=== PATIENT | male | born 1970 | race Caucasian/White ===

== ENCOUNTER 2017-05-10 11:29 | Emergency (ER) | payer OTHER ==
[2017-05-10] MEDS ORDERED: Acetaminophen/HYDROcodone 325-5 MG Tab PO ONE (14:19)
--- NOTE | 2017-05-10 14:25 | EDM.PDOC ---
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 He presents with left elbow pain, and the inability to flex and extend his left elbow. He is otherwise uninjured. No prior left elbow injury. Left Elbow Pain Score (Numeric/FACES): 8 - Related Data Allergies Allergy/AdvReac Type Severity Reaction Status Date / Time No Known Allergies Allergy Verified 05/10/17 11:36 Home Meds: Home Meds Baby Aspirin 05/10/17 [History] Dilantin. 05/10/17 [History] Keppra. 1,500 mg PO BID 05/10/17 [History] Lisinopril. 05/10/17 [History] Past Medical History Cardiovascular History: Reports: High Cholesterol, Hypertension Neurological History: Reports: Seizure - Past Surgical History Respiratory Surgical History: Reports: Other (See Below) (Bilateral tube thoracostomies) Musculoskeletal Surgical History: Reports: Shoulder Surgery (Left rotator cuff repair), Other (See Below) (Right fifth finger pinning) Social & Family History - Tobacco Use Smoking Status *Q: Current Every Day Smoker Years of Tobacco use: 30 Packs/Tins Daily: 1 - Alcohol Use Alcohol Use History: Yes Alcohol Use Frequency: Socially - Recreational Drug Use Recreational Drug Use: No - Living Situation & Occupation Living situation: Reports: Single, Alone 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 ED EXAM, GENERAL - Physical Exam Exam: See Below Exam Limited By: No Limitations General Appearance: Alert, WD/WN, No Apparent Distress Extremities: Other (Mild swelling to the posterior aspect of the left elbow, but no ecchymosis, abrasion, or erythema. There is tenderness to palpation of the posterior elbow, and pain is induced in the elbow with any attempts at ROM. Neurovascular status of the left upper extremity is intact.) ED TRAUMA EXTREMITY PROCEDURES - Splinting Left Upper Extremity Splint Site: Left elbow Pre-Procedure NV Status: Normal Post-Procedure NV Status: Normal Splint Material: Fiberglass Splint Design: Gutter Applied & Form Fitted By: Provider Provider Post-Splint Application NV Check: NV Status Normal, Good Position Complications: Yes Course - Vital Signs Last Recorded V/S: Last Vital Signs Temp 36.3 C 05/10/17 11:38 Pulse 80 05/10/17 11:38 Resp 16 05/10/17 11:38 BP 127/85 05/10/17 11:38 Pulse Ox 100 05/10/17 11:38 - Orders/Labs/Meds Meds: Medications Discontinued Medications Generic Name Dose Route Start Last Admin Trade Name Freq PRN Reason Stop Dose Admin Hydrocodone Bitart/Acetaminophen 2 tab 05/10/17 14:19 05/10/17 14:24 Sharon 325-5 Mg PO 05/10/17 14:20 Not Given ONETIME ONE - Re-Assessments/Exams Free Text/Narrative Re-Assessment/Exam: 05/10/17 14:21 4-view radiographs of the left elbow appear to demonstrate a displaced fracture of the olecranon process of the ulna. The elbow is not dislocated. The radius appears to be intact. A metallic foreign body is noted within the soft tissue in the vicinity. Formal read per the radiologist pending. 05/10/17 14:[address] Montaño at 14:24. He recommends that we splint the arm , have the patient ice and elevate the arm over the weekend, then have him follow-up in the clinic this coming 05/15/2017, with an expectation that he will go to the OR on 05/16/2017. The patient's left arm was placed into a gutter splint. He was offered pain medication, but declined. Departure - Departure Time of Disposition: 14:49 Disposition: Home, Self-Care 01 Condition: Fair Clinical Impression: Fracture of olecranon process, left, closed, Fall from slipping on ice - Discharge Information Instructions: Fall Prevention in the Home Referrals: Tosin Fishman MD [Primary Care Provider] - Sd Montaño MD [Physician] - Forms: ED Department Discharge Additional Instructions: You were seen in the emergency room after slipping on ice and falling on your left elbow at work today. Workup in the ER included x-rays of your left elbow, which showed a left elbow fracture. Your left arm has been placed into a splint. The splint cannot get wet. We recommend that you ice and elevate your left elbow as much as possible over the weekend, to help minimize swelling. Take [id number] ibuprofen, 2-3 tablets (400-600 mg) every 8 hours, with food, as needed for pain. Follow-up with the Orthopedic Surgeon Dr. Montaño this coming Monday, 2017. You should expect to go to the OR with Dr. Montaño on 05/16/2017. If any other problems, please do not hesitate to return to the ER.
--- NOTE | 2017-05-10 14:31 | CR ---
Left elbow: Four views of the left elbow were obtained. Comparison: No prior elbow study. Displaced olecranon process fracture is seen. Soft tissue swelling is noted. Small metallic foreign body projected within the proximal to mid forearm. Broken wire is identified within the soft tissues located slightly distal to the elbow. Joint effusion is seen. No additional fracture is appreciated. Impression: 1. Displaced olecranon process fracture with joint effusion and soft tissue swelling. 2. Several radiopaque foreign objects which are likely old. Diagnostic code #3
== END 2017-05-10 15:10 | disposition home or self-care (01) ==
LOC: JD.ED 11:29
DX: S52.022A Displaced fracture of olecranon process without intraarticular extension of left ulna, initial encounter for closed fracture (principal); I10 Essential (primary) hypertension; F17.210 Nicotine dependence, cigarettes, uncomplicated; Z79.899 Other long term (current) drug therapy; W00.0XXA Fall on same level due to ice and snow, initial encounter
CPT/HCPCS: 29105; 29125; 73080-26-LT; 73080-LT; 99283-25; 99284-25

== ENCOUNTER 2017-05-16 06:58 | Day surgery (SDC) | payer OTHER ==
--- NOTE | 2017-05-16 06:44 | PCM.PREANE ---
Preanesthetic Assessment - Anesthesia/Transfusion/Family Hx Anesthesia History: Prior Anesthesia Without Reaction Family History of Anesthesia Reaction: No Transfusion History: No Prior Transfusion(s) Intubation History: Unknown - Review of Systems General: No Symptoms Pulmonary: No Symptoms (Current every day smoker: 1-2 packs/day times 25 years.) Cardiovascular: No Symptoms (history of HTN) Gastrointestinal: No Symptoms Neurological: No Symptoms, Seizure (History of epilepsy/last seizure 1.5 years ago.) Other: Reports: None - Physical Assessment NPO Status Date: 05/15/17 NPO Status Time: 18:00 Pulse: 90 O2 Sat by Pulse Oximetry: 97 Respiratory Rate: 16 Blood Pressure: 142/95 Temperature: 37.3 C Height: 1.78 m Weight: 73 kg ASA Class: 2 Mental Status: Alert & Oriented x3 Airway Class: Mallampati = 2 Dentition: Reports: Normal Dentition, Caries Thyro-Mental Finger Breadths: 3 Mouth Opening Finger Breadths: 3 ROM/Head Extension: Full Lungs: Clear to Auscultation, Normal Respiratory Effort Cardiovascular: Regular Rate, Regular Rhythm, No Murmurs - Lab Values: Above labs reviewed and noted and within acceptable ranges to proceed with scheduled procedure. MRSA -. - Imaging/EKG Impressions: CXR: scoliosis/negative chest. EKG: SR rate= 89 - Allergies Allergies/Adverse Reactions: Allergies Allergy/AdvReac Type Severity Reaction Status Date / Time No Known Allergies Allergy Verified 05/16/17 07:38 - Anesthesia Plan Pre-Op Medication Ordered: None - Acknowledgements Anesthesia Type Planned: General Anesthesia Pt an Appropriate Candidate for the Planned Anesthesia: Yes Alternatives and Risks of Anesthesia Discussed w Pt/Guardian: Yes Pt/Guardian Understands and Agrees with Anesthesia Plan: Yes PreAnesthesia Questionnaire HEENT History: Reports: None Cardiovascular History: Reports: High Cholesterol, Hypertension Respiratory History: Reports: None Gastrointestinal History: Reports: None Genitourinary History: Reports: None QUALITY RN History: Reports: None Other Musculoskeletal History: olecranon fracture Neurological History: Reports: Seizure Psychiatric History: Reports: None Endocrine/Metabolic History: Reports: None Hematologic History: Reports: None Immunologic History: Reports: None Oncologic (Cancer) History: Reports: None Dermatologic History: Reports: None - Past Surgical History Head Surgeries/Procedures: Reports: None Cardiovascular Surgical History: Reports: None Respiratory Surgical History: Reports: None GI Surgical History: Reports: None Female Surgical History: Reports: None Male Surgical History: Reports: None Endocrine Surgical History: Reports: None Musculoskeletal Surgical History: Reports: Shoulder Surgery, Other (See Below) Oncologic Surgical History: Reports: None Dermatological Surgical History: Reports: None - SUBSTANCE USE Smoking Status *Q: Current Every Day Smoker Recreational Drug Use History: No - HOME MEDS Home Medications: Home Meds Aspirin [Halfprin] 81 mg PO DAILY 05/15/17 [History] Lisinopril 40 mg PO DAILY 05/15/17 [History] Phenytoin Sodium Extended [Dilantin] 200 mg PO BID 05/15/17 [History] Triamcinolone Acetonide [Triamcinolone Acetonide 0.1% Crm] 1 applic TOP ASDIRECTED 05/15/17 [History] atorvaSTATin [Lipitor] 20 mg PO DAILY 05/15/17 [History] levETIRAcetam [Keppra] 1,500 mg PO BID 05/15/17 [History] - CURRENT (IN HOUSE) MEDS Current Meds: Current Medications Lactated Ringer's (Ringers, Lactated) 1,000 mls @ 125 mls/hr IV ASDIRECTED JEAN CARLOS Stop: 05/16/17 23:00 Lidocaine/Sodium Bicarbonate (Buffered Lidocaine 1% In Ns 8.4%) 0.25 ml IDERM ONETIME PRN PRN Reason: Prior to IV Start Stop: 05/16/17 18:00 Sodium Chloride (Saline Flush) 10 ml FLUSH ASDIRECTED PRN PRN Reason: Keep Vein Open Stop: 05/16/17 18:00
--- NOTE | 2017-05-16 06:48 | HP ---
DATE OF ADMISSION: 05/16/2017 HISTORY OF PRESENT ILLNESS: This is the first orthopedic outpatient admission for surgery for this 47-year- old male, who is being admitted for the surgical repair of a displaced fracture of the left olecranon. 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 He was initially evaluated in the emergency room, splinted and now seen in the Orthopedic Clinic. The fracture was evaluated, found to have significant displacement. The patient is now being scheduled for surgical open reduction and internal fixation of the fracture. Procedure has been outlined to him along the risks and complications involved with that and he has consented to the surgery. ALLERGIES: No known drug allergies. PAST MEDICAL HISTORY: The patient has a history of seizure disorder, high blood pressure, and increased cholesterol. CURRENT MEDICATIONS: Include atorvastatin along with Levetiracetam ER 500 mg, lisinopril, Dilantin, and also he is on an aspirin therapy. PAST SURGICAL HISTORY: Positive. He has had previous left shoulder surgery, rotator cuff, had general anesthesia 16 years ago, had no anesthetic problems. He has a negative bleeding history, negative blood clot history. SOCIAL HISTORY: The patient is a smoker, 1 pack per day. He uses alcohol on an occasional basis. PHYSICAL EXAMINATION: GENERAL: Today reveals a well-developed, well-nourished 47-year-old male, in moderate distress. HEAD, EYES, EARS, NOSE, AND THROAT: Normocephalic. NECK: Supple. CHEST: Clear. COR: Regular rate. ABDOMEN: Soft. GENITOURINARY: Intact. EXTREMITIES: Examination of the left elbow reveals positive hematoma, ecchymosis formation all around the left elbow area with positive pain on direct pressure, swelling noted. The patient has positive active flexion and extension of the wrist with minimal pain discomfort. Sensory and vascular structures are intact. RADIOLOGY: The x-rays reviewed, shows a displaced olecranon fracture of left elbow. PLAN: The patient to undergo surgical open reduction and internal fixation of the left elbow fracture. Procedure was outlined to him, all risks and complications involved with that and he has consented to surgery. DEVANTE /[id number]
[~2017-05-16 06:58] MED LIST: Iodine/Sodium Iodide 2% Tincture 30 ML Bottle ONE; Lidocaine 1% with EPINEPHrine 1:100,000 20 ML MDV ONE
[2017-05-16] MEDS ORDERED: Sodium Chloride 0.9% 10 ML Syringe FLUSH PRN (07:00)
[2017-05-16] MEDS ORDERED: Lidocaine 1%/Sod Bicarbonate in NS 8.4% 1 ML Syringe IDERM PRN (07:00)
[2017-05-16] MEDS ORDERED: Lactated Ringers 1,000 ML IV SCH (07:00)
[2017-05-16] MEDS ORDERED: Lactated Ringers 1,000 ML ONE (07:16)
[2017-05-16] MEDS ORDERED: ceFAZolin 1 GM Vial ONE (07:16)
[2017-05-16] MEDS ORDERED: Rocuronium 50 MG/5 ML Vial ONE (07:16)
[2017-05-16] MEDS ORDERED: Lidocaine 1% 4 ML ONE (07:16)
[2017-05-16] MEDS ORDERED: Dexamethasone 4 MG/ML SDV ONE (07:16)
[2017-05-16] MEDS ORDERED: Ondansetron 4 MG/2 ML SDV ONE (07:16)
[2017-05-16] MEDS ORDERED: Ketorolac 30 MG/ML SDV ONE (07:16)
[2017-05-16] MEDS ORDERED: Midazolam 1 MG/ML 2 ML SDV ONE (07:17)
[2017-05-16] MEDS ORDERED: Propofol 200 MG/20 ML SDV ONE (07:17)
[2017-05-16] MEDS ORDERED: fentaNYL 250 MCG/5 ML SDV ONE (07:18)
[2017-05-16] MEDS ORDERED: HYDROmorphone 1 MG/ML Syringe ONE ×3 (07:18→09:55)
[2017-05-16] MEDS ORDERED: Acetaminophen/oxyCODONE 325-5 MG Tab PO PRN (07:57)
[2017-05-16] MEDS ORDERED: Ondansetron 4 MG/2 ML SDV IVPUSH PRN ×2 (07:57→08:16)
[2017-05-16] MEDS ORDERED: Ketorolac 30 MG/ML SDV IVPUSH PRN (07:57)
[2017-05-16] MEDS ORDERED: Morphine 15 MG Tab.ER PO SCH (08:00)
[2017-05-16] MEDS ORDERED: diphenhydrAMINE 50 MG/ML SDV IVPUSH PRN (08:16)
[2017-05-16] MEDS ORDERED: ePHEDrine 50 MG/ML SDV IVPUSH PRN (08:16)
[2017-05-16] MEDS ORDERED: Albuterol 0.083% 2.5 MG/3 ML Neb Soln NEB ONE (08:16)
[2017-05-16] MEDS ORDERED: HYDROmorphone 1 MG/ML Syringe IVPUSH ONE (08:17)
[2017-05-16] MEDS ORDERED: Phenylephrine 1 MG in Sodium Chloride 0.9% 10 ML IV SCH (08:30)
[2017-05-16] MEDS ORDERED: fentaNYL 100 MCG/2 ML SDV ONE (09:10)
--- NOTE | 2017-05-16 10:23 | CR ---
Left elbow: Seven fluoroscopic spot views were obtained of the left elbow utilizing C-arm device in the operating room. Study shows reduction and fixation of previous olecranon process fracture. Final film shows fixation pins and wire in place. Fluoroscopy time given as 37.7 seconds. Impression: 1. Operative study as noted above. Diagnostic code #2
[2017-05-16] MEDS: fentaNYL 100 MCG/2 ML SDV IVPUSH PRN ×2 (10:26→10:44)
--- NOTE | 2017-05-16 10:26 | PCM.POSTAN ---
POST ANESTHESIA ASSESSMENT - MENTAL STATUS Mental Status: Alert - VITAL SIGNS Pulse Rate: 95 SaO2: 94 Resp Rate: 17 Blood Pressure: 130/86 Temperature: 37.3 C - RESPIRATORY Respiratory Status: Respiratory Rate WNL, Airway Patent, O2 Saturation Stable, Supplemental Oxygen - CARDIOVASCULAR CV Status: Pulse Rate WNL, Blood Pressure Stable - GASTROINTESTINAL GI Status: No Symptoms - POST OP HYDRATION Hydration Status: Adequate & Stable
[2017-05-16] MEDS ORDERED: Cyclobenzaprine 10 MG Tab PO PRN (10:30)
--- NOTE | 2017-05-16 12:41 | PCM48HPAN ---
Post Anesthesia Note - EVALUATION WITHIN 48HRS OF ANESTHETIC Vital Signs in Normal Range: Yes Patient Participated in Evaluation: Yes Respiratory Function Stable: Yes Airway Patent: Yes Cardiovascular Function Stable: Yes Hydration Status Stable: Yes Pain Control Satisfactory: Yes Nausea and Vomiting Control Satisfactory: Yes Mental Status Recovered: Yes
--- NOTE | 2017-05-16 13:15 | OR ---
DATE OF OPERATION: 05/16/2017 SURGEON: Sd Montaño MD PREOPERATIVE DIAGNOSIS: Displaced and unstable olecranon fracture, left elbow. POSTOPERATIVE DIAGNOSIS: Displaced and unstable olecranon fracture, left elbow. ANESTHESIA: General. OPERATION PERFORMED: Open reduction and internal fixation of left elbow olecranon fracture with pins, wire, tension band wiring. DESCRIPTION OF PROCEDURE: The patient was taken to the operative room in a supine position and was placed under a general anesthesia. The left arm was then prepped and draped by standard fashion for approach to the olecranon area of the left elbow. After prepping and draping, a midline incision was used paralleling the crest of the ulna, extending over the distal elbow proximally to approximately a couple of centimeters proximal to the fragment of the olecranon. Penetration was made through the skin and the subcutaneous tissues. These were sharply dissected down to the ridge of the ulna and extended over the fracture site and also the proximal portion of the fractured olecranon fragment. This soft tissues were then dissected free to open up and to expose the area of fracture. Fracture hematoma was then removed from the wound area and the fracture site until it was easily identifiable to see the fracture lines and then the joint was inspected with flexion and extension with the fracture held apart. Ccgmbzd-rx-qv changes were noted in the joint area, except some scuffing of the articular cartilage. Operation then proceeded with irrigation of the wound again. The fracture was then reduced and held in place with a tenaculum. It was felt that with the bone that a screw fixation would be first attempted to fix with a 6.5 cannulated screw. This was placed, but once it was put into place, the fracture remained somewhat movable, but not lock down into solid position. It was opted to change the screw into a tension band wiring. Two Steinmann pins, 2.5 mm, were inserted through the olecranon fragment proximally and into the distal ulna. Once the pins were in place, a drill hole was then placed approximately 2 to 3 cm from the fracture line distally for a wire to be passed through. A 1.25 wire was used. This was slid through the cortical hole and then was looped up and around the two paralleling Steinmann pins in a [id number] fashion and then tensioned and tightened to reduce the fragment and allow it to slide on the Steinmann pins to reduce the fracture itself. This stabilized it very nicely. There was no movement. Once the fracture was pinned in place and tightened with the tension band wiring, the Steinmann pins were then bent to cover the wire itself and then impacted into the distal portion of the triceps through a small slit. Once they were in place, the operation proceeded with final evaluation of the fracture site with the fluoroscopy. Fluoroscopy was used all through the procedure to follow the pin fixations. The fracture line itself was identifiable. The reduction at the joint level articular surface was very acceptable. The operation then proceeded for final irrigation. Hardcopy x-rays were taken, AP and lateral, and then the operation proceeded with closure of the deep tissues with #1 Vicryl, subcutaneous tissue with 2-0 Vicryl, and skin with skin jessica. Standard dressings were applied and a long-arm cast, which was windowed over the wound. The patient tolerated this whole procedure well and left the operating room in a stable condition to his room for recovery. ESTIMATED BLOOD LOSS: MMODAL /[id number]
== END 2017-05-16 13:10 | disposition home or self-care (01) ==
LOC: JD.SDS 06:58
PROVIDERS: ATTEND Specialist
DX: S52.022A Displaced fracture of olecranon process without intraarticular extension of left ulna, initial encounter for closed fracture (principal); W00.0XXA Fall on same level due to ice and snow, initial encounter; I10 Essential (primary) hypertension; E78.00 Pure hypercholesterolemia, unspecified; Z79.82 Long term (current) use of aspirin; Z79.899 Other long term (current) drug therapy; F17.210 Nicotine dependence, cigarettes, uncomplicated
CPT/HCPCS: 24685; 76000; A9270; J0690; J1100; J1170; J1885; J2250; J2405; J3010; J7120; C1713; J2704

== ENCOUNTER 2017-10-24 07:31 | Day surgery (SDC) | payer OTHER ==
--- NOTE | 2017-10-16 22:02 | HP ---
DATE OF ADMISSION: 10/24/2017 ORTHOPEDIC OUTPATIENT ADMITTING HISTORY AND PHYSICAL FOR SURGERY HISTORY: This is the second orthopedic outpatient admission for surgery for this 47-year- old male who has been brought in for a surgical removal of orthopedic hardware of the left elbow, pins and wire fixation for a fracture. The patient has had positive pain with the mechanical device that is present, and the x-ray has shown good healing of the bone. Hardware will be removed in surgery. Procedure has been outlined to him. He understands the procedure and also the postoperative restriction phase, about 6 weeks, and has consented to surgery. ALLERGIES: No known drug allergy. PAST MEDICAL HISTORY: He has been a patient with increased blood pressure, cholesterol, has occasional seizures, currently on lisinopril. CURRENT MEDICATIONS: Atorvastatin along with Dilantin and aspirin. PAST SURGICAL HISTORY: Positive. The patient had previous left elbow surgery, 05/16/2017. He had no anesthesia problems. The patient has a negative bleeding history, negative blood clot history. SOCIAL HISTORY: He is a smoker, 1 pack per day. Alcohol is on occasional use. PHYSICAL EXAMINATION: GENERAL: Reveals a well-developed, well-nourished 47-year-old male in moderate distress. HEAD, EYES, EARS, NOSE, AND THROAT: Normocephalic. NECK: Supple. CHEST: Clear. COR: Regular rate. ABDOMEN: Soft. : Intact. MUSCULOSKELETAL: Examination of the left elbow reveals a positive painful hardware on direct pressure palpation. Previous surgical wounds, all healed. No signs of infection or inflammation. RADIOLOGY: X-rays show a pin-wire fixation of olecranon fracture. No fracture line present. Good callus formation was noted. OVERALL IMPRESSION: Painful hardware, left elbow. PLAN: Plan is for the patient to undergo surgical removal of painful hardware. MMODAL /[id number] MICHAEL
[~2017-10-24 07:31] MED LIST changes: -Iodine/Sodium Iodide 2% Tincture 30 ML Bottle ONE; +Lactated Ringers 1,000 ML IV SCH; -Lidocaine 1% with EPINEPHrine 1:100,000 20 ML MDV ONE; +Lidocaine 1%/Sod Bicarbonate in NS 8.4% 1 ML Syringe IDERM PRN; +Sodium Chloride 0.9% 10 ML Syringe FLUSH PRN
--- NOTE | 2017-10-24 08:21 | PCM.PREANE ---
Preanesthetic Assessment - Procedure Proposed Procedure: REMOVAL OF HARDWARE TO LEFT ELBOW - Anesthesia/Transfusion/Family Hx Anesthesia History: Prior Anesthesia Without Reaction Family History of Anesthesia Reaction: No Transfusion History: No Prior Transfusion(s) Intubation History: Unknown - Review of Systems General: No Symptoms Pulmonary: No Symptoms Cardiovascular: Other (HTN, HLD) Gastrointestinal: No Symptoms (denies GERD ) Neurological: Seizure (last seizure about a year ago, patient stated they are well regulated now ) Other: Reports: None - Physical Assessment NPO Status Date: 10/24/17 NPO Status Time: 06:00 O2 Sat by Pulse Oximetry: 100 Respiratory Rate: 16 Vital Signs: Last Vital Signs Temp 36.3 C 10/24/17 07:40 Pulse 71 10/24/17 07:40 Resp 16 10/24/17 07:40 BP 125/75 10/24/17 07:40 Pulse Ox 100 10/24/17 07:40 Height: 1.73 m Weight: 73.1 kg ASA Class: 2 Airway Class: Mallampati = 3 Dentition: Reports: Normal Dentition Thyro-Mental Finger Breadths: 3 Mouth Opening Finger Breadths: 3 ROM/Head Extension: Full Lungs: Clear to Auscultation, Normal Respiratory Effort Cardiovascular: Regular Rate, Regular Rhythm - Allergies Allergies/Adverse Reactions: Allergies Allergy/AdvReac Type Severity Reaction Status Date / Time No Known Allergies Allergy Verified 05/16/17 07:38 - Blood Blood Available: No Product(s) Available: None - Anesthesia Plan Pre-Op Medication Ordered: None - Acknowledgements Anesthesia Type Planned: General Anesthesia (LMA recommended ) Pt an Appropriate Candidate for the Planned Anesthesia: Yes Alternatives and Risks of Anesthesia Discussed w Pt/Guardian: Yes Pt/Guardian Understands and Agrees with Anesthesia Plan: Yes PreAnesthesia Questionnaire HEENT History: Reports: None Cardiovascular History: Reports: High Cholesterol, Hypertension Respiratory History: Reports: None Gastrointestinal History: Reports: None Genitourinary History: Reports: None BLOCK CUBER History: Reports: None Other Musculoskeletal History: olecranon fracture Neurological History: Reports: Seizure Psychiatric History: Reports: None Endocrine/Metabolic History: Reports: None Hematologic History: Reports: None Immunologic History: Reports: None Oncologic (Cancer) History: Reports: None Dermatologic History: Reports: None - Past Surgical History Head Surgeries/Procedures: Reports: None HEENT Surgical History: Reports: None Cardiovascular Surgical History: Reports: None Respiratory Surgical History: GI Surgical History: Reports: None Female Surgical History: Reports: None Male Surgical History: Reports: None Endocrine Surgical History: Reports: None Neurological Surgical History: Reports: None Musculoskeletal Surgical History: Reports: Shoulder Surgery, Other (See Below) Other Musculoskeletal Surgeries/Procedures:: left elbow ORIF with hardware placed Oncologic Surgical History: Reports: None Dermatological Surgical History: Reports: None - SUBSTANCE USE Smoking Status *Q: Current Every Day Smoker (1ppd for 30 years) Second Hand Smoke Exposure: No Recreational Drug Use History: No - HOME MEDS Home Medications: Home Meds Aspirin [Halfprin] 81 mg PO DAILY 05/15/17 [History] Lisinopril 40 mg PO DAILY 05/15/17 [History] Phenytoin Sodium Extended [Dilantin] 200 mg PO BID 05/15/17 [History] atorvaSTATin [Lipitor] 20 mg PO DAILY 05/15/17 [History] levETIRAcetam [Keppra] 1,500 mg PO BID 05/15/17 [History] Phenytoin 50 mg PO BEDTIME 10/23/17 [History] - CURRENT (IN HOUSE) MEDS Current Meds: Current Medications Lactated Ringer's (Ringers, Lactated) 1,000 mls @ 125 mls/hr IV ASDIRECTED JEAN CARLOS Lidocaine/Sodium Bicarbonate (Buffered Lidocaine 1% In Ns 8.4%) 0.25 ml IDERM ONETIME PRN PRN Reason: Prior to IV Start Stop: 10/24/17 18:00 Sodium Chloride (Saline Flush) 10 ml FLUSH ASDIRECTED PRN PRN Reason: Keep Vein Open Stop: 10/24/17 18:00
[2017-10-24] MEDS ORDERED: ceFAZolin 1 GM Vial ONE (09:00)
[2017-10-24] MEDS ORDERED: Ketorolac 30 MG/ML SDV ONE (09:00)
[2017-10-24] MEDS ORDERED: Dexamethasone 4 MG/ML SDV ONE ×2 (09:00→10:25)
[2017-10-24] MEDS ORDERED: Lactated Ringers 1,000 ML ONE (09:00)
[2017-10-24] MEDS ORDERED: Ondansetron 4 MG/2 ML SDV ONE (09:00)
[2017-10-24] MEDS ORDERED: fentaNYL 100 MCG/2 ML SDV ONE (09:01)
[2017-10-24] MEDS ORDERED: Propofol 200 MG/20 ML SDV ONE (09:01)
[2017-10-24] MEDS ORDERED: Lidocaine 1% 4 ML ONE (09:01)
[2017-10-24] MEDS ORDERED: Midazolam 1 MG/ML 2 ML SDV ONE (09:01)
[2017-10-24] MEDS ORDERED: Bupivacaine 0.5%/EPINEPHrine 1:200,000 50 ML MDV ONE (09:32)
[2017-10-24] MEDS ORDERED: Iodine/Sodium Iodide 2% Tincture 30 ML Bottle ONE (09:32)
[2017-10-24] MEDS ORDERED: Ketorolac 30 MG/ML SDV IVPUSH PRN (09:57)
[2017-10-24] MEDS ORDERED: traMADol 50 MG Tab PO PRN (09:57)
[2017-10-24] MEDS ORDERED: Ondansetron 4 MG/2 ML SDV IVPUSH PRN (09:57)
[2017-10-24] MEDS ORDERED: HYDROmorphone 0.5 MG/0.5 ML Syringe ONE (10:22)
[2017-10-24] MEDS ORDERED: diphenhydrAMINE 50 MG/ML SDV IVPUSH PRN (11:07)
[2017-10-24] MEDS ORDERED: HYDROmorphone 0.5 MG/0.5 ML Syringe IVPUSH PRN (11:07)
[2017-10-24] MEDS ORDERED: fentaNYL 100 MCG/2 ML SDV IVPUSH PRN (11:07)
[2017-10-24] MEDS ORDERED: Haloperidol Lactate 5 MG/ML SDV IVPUSH ONE (11:07)
--- NOTE | 2017-10-24 11:09 | PCM.POSTAN ---
POST ANESTHESIA ASSESSMENT - MENTAL STATUS Mental Status: Somnolent - VITAL SIGNS Pulse Rate: 54 SaO2: 100 Resp Rate: 11 Blood Pressure: 115/79 Temperature: 36.8 C - RESPIRATORY Respiratory Status: Respiratory Rate WNL, Airway Patent, O2 Saturation Stable, Supplemental Oxygen - CARDIOVASCULAR CV Status: Pulse Rate WNL, Blood Pressure Stable - GASTROINTESTINAL GI Status: No Symptoms - PAIN Pain Score: 0 - POST OP HYDRATION Hydration Status: Adequate & Stable
--- NOTE | 2017-10-24 15:33 | OR ---
DATE OF OPERATION: 10/24/2017 SURGEON: Sd Montaño MD PREOPERATIVE DIAGNOSIS: Open reduction and internal fixation of olecranon fracture, left elbow, with hardware. POSTOPERATIVE DIAGNOSIS: Open reduction and internal fixation of olecranon fracture, left elbow, with hardware. ANESTHESIA: General. OPERATION PERFORMED: Removal of hardware, left elbow, pins and wire. DESCRIPTION OF PROCEDURE: The patient was taken to the operative room in a supine position, where he was placed under general anesthesia. The left arm was then prepped and draped by standard technique. After prepping and draping, the operation proceeded with an incision being placed through the old previous surgical incision. Penetration was made through the skin and subcutaneous tissues down to the olecranon area. The wire fixation was immediately identified as was the Steinmann pins that were used. These were freed up of scar tissue and removed. Once the Steinmann pins were removed, then the [id number] wire fixation was removed by cutting the wire. Once that was completed, the area was thoroughly irrigated. The subcutaneous tissues were closed with 3-0 Vicryl and skin with skin jessica. The patient was placed in standard dressings. He tolerated this whole procedure well and left the operating room in a stable condition to his room for recovery. ESTIMATED BLOOD LOSS: MMODAL /[id number]
== END 2017-10-24 12:10 | disposition home or self-care (01) ==
LOC: JD.SDS 07:31
PROVIDERS: ATTEND Specialist
DX: T84.84XA Pain due to internal orthopedic prosthetic devices, implants and grafts, initial encounter (principal); I10 Essential (primary) hypertension; E78.00 Pure hypercholesterolemia, unspecified; R56.9 Unspecified convulsions; F17.210 Nicotine dependence, cigarettes, uncomplicated; Z79.82 Long term (current) use of aspirin; Z79.899 Other long term (current) drug therapy; Z98.890 Other specified postprocedural states
CPT/HCPCS: 20680; A9270; J0690; J1100; J1170; J1885; J2250; J2405; J2704; J3010; J3490; J7120; J2001

== ENCOUNTER 2019-10-05 16:00 | Emergency (ER) | payer OTHER ==
[2019-10-05] MEDS ORDERED: Aspirin 81 MG Tab.Chew PO ONE (16:19)
[2019-10-05] MEDS ORDERED: Sodium Chloride 0.9% 10 ML Syringe FLUSH PRN (16:35)
[2019-10-05] MEDS ORDERED: Acetaminophen 325 MG Tab PO ONE (16:35)
[2019-10-05] MEDS ORDERED: Ketorolac 30 MG/ML SDV IVPUSH SCH (16:45)
--- NOTE | 2019-10-05 16:55 | EDM.PDOC ---
ED HPI GENERAL MEDICAL PROBLEM - General Chief Complaint: Chest Pain Stated Complaint: CHEST PAIN Time Seen by Provider: 10/05/19 16:25 Source of Information: Reports: Patient, RN Notes Reviewed - History of Present Illness INITIAL COMMENTS - FREE TEXT/NARRATIVE: 49 yr old male male comes in with upper abd, low chest and back pain that all started this past morning many hrs ago, now worse. It does hurt to take a deep breath. He has not been coughing more than usual. He felt fine yesterday. He does smoke. He denies hx of CAD, diabetes, GI problems. No nausea or vomiting. Pain quite severe at time of initial exam. Chest Pain Score (Numeric/FACES): 9 - Related Data Allergies Allergy/AdvReac Type Severity Reaction Status Date / Time No Known Allergies Allergy Verified 10/05/19 16:12 Home Meds: Home Meds Aspirin [Halfprin] 81 mg PO DAILY 05/15/17 [History] Lisinopril 40 mg PO DAILY 05/15/17 [History] Phenytoin Sodium Extended [Dilantin] 200 mg PO BID 05/15/17 [History] atorvaSTATin [Lipitor] 20 mg PO DAILY 05/15/17 [History] levETIRAcetam [Keppra] 1,500 mg PO BID 05/15/17 [History] Phenytoin 50 mg PO BEDTIME 10/23/17 [History] Past Medical History HEENT History: Reports: None Cardiovascular History: Reports: High Cholesterol, Hypertension Respiratory History: Reports: None Gastrointestinal History: Reports: None Genitourinary History: Reports: None [employer] History: Reports: None Other Musculoskeletal History: olecranon fracture Neurological History: Reports: Seizure Psychiatric History: Reports: None Endocrine/Metabolic History: Reports: None Hematologic History: Reports: None Immunologic History: Reports: None Oncologic (Cancer) History: Reports: None Dermatologic History: Reports: None - Past Surgical History Head Surgeries/Procedures: Reports: None HEENT Surgical History: Reports: None Cardiovascular Surgical History: Reports: None Respiratory Surgical History: Reports: Other (See Below) GI Surgical History: Reports: None Male Surgical History: Reports: None Endocrine Surgical History: Reports: None Neurological Surgical History: Reports: None Musculoskeletal Surgical History: Reports: Shoulder Surgery, Other (See Below) Other Musculoskeletal Surgeries/Procedures:: left elbow ORIF with hardware placed Oncologic Surgical History: Reports: None Dermatological Surgical History: Reports: None Social & Family History - Tobacco Use Smoking Status *Q: Current Every Day Smoker Years of Tobacco use: 20 Packs/Tins Daily: 1 - Caffeine Use Caffeine Use: Reports: Coffee - Recreational Drug Use Recreational Drug Use: No - Living Situation & Occupation Living situation: Reports: Single, Alone 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 Denies: Shortness of Breath Cardiovascular: Reports: Chest Pain GI/Abdominal: Reports: Abdominal Pain. Denies: Nausea, Vomiting Musculoskeletal: Reports: Back Pain. Denies: Shoulder Pain, Arm Pain Skin: Reports: No Symptoms Neurological: Reports: No Symptoms ED EXAM, GENERAL - Physical Exam Exam: See Below General Appearance: Alert, Anxious, Moderate Distress Eye Exam: Bilateral Eye: PERRL Head: Atraumatic Neck: Supple, Other (no JVD) Respiratory/Chest: Lungs Clear, Normal Breath Sounds. No: Rhonchi, Wheezing Cardiovascular: Regular Rate, Rhythm GI/Abdominal: Tender (mild tenderness upper mid abd) Back Exam: No: CVA Tenderness (L), CVA Tenderness (R) Extremities: Normal Inspection, No Pedal Edema, Redness. No: Leg Pain, Increased Warmth Neurological: Alert, Oriented, No Motor/Sensory Deficits Skin Exam: Warm, Dry EKG INTERPRETATION EKG Date: 10/05/19 Rhythm: NSR [place]: Normal P-Wave: Present QRS: Other (q waves V2) ST-T: Elevated (mild St elevation V2) Course - Vital Signs Last Recorded V/S: Last Vital Signs Temp 97.7 F 10/05/19 16:05 Pulse 86 10/05/19 16:05 Resp 18 10/05/19 16:05 BP 123/70 10/05/19 16:05 Pulse Ox 100 10/05/19 16:05 - Orders/Labs/Meds Orders: Active Orders 24 hr Category Date Time Status EKG Documentation Completion [RC] STAT Care 10/05/19 16:18 Active Peripheral IV Care [RC] . DIRECTED Care 10/05/19 16:35 Active Chest 1V Frontal [CR] Stat Exams 10/05/19 16:54 Taken Ketorolac [Toradol] Med 10/05/19 16:45 Active 30 mg IVPUSH ONETIME Sodium Chloride 0.9% [Saline Flush] Med 10/05/19 16:35 Active 10 ml FLUSH ASDIRECTED PRN Peripheral IV Insertion Adult [OM.PC] Stat Oth 10/05/19 16:35 Ordered Medication Orders Ketorolac Tromethamine (Toradol) 30 mg IVPUSH ONETIME JEAN CARLOS Last Admin: 10/05/19 16:41 Dose: 30 mg Documented by: ALONSO Sodium Chloride (Saline Flush) 10 ml FLUSH ASDIRECTED PRN PRN Reason: Keep Vein Open Last Admin: 10/05/19 16:38 Dose: 10 ml Documented by: ALONSO Labs: Laboratory Tests 10/05/19 10/05/19 10/05/19 Range/Units 16:10 16:10 16:10 WBC 10.03 H (4.23-9.07) K/mm3 RBC 4.15 L (4.63-6.08) M/mm3 Hgb 13.3 L (13.7-17.5) gm/dl Hct 38.9 L (40.1-51.0) % MCV 93.7 H (79.0-92.2) fl MCH 32.0 (25.7-32.2) pg MCHC 34.2 (32.2-35.5) g/dl RDW Std Deviation 45.9 H (35.1-43.9) fL Plt Count 195 (163-337) K/mm3 MPV 8.9 L (9.4-12.3) fl Neut % (Auto) 80.7 H (34.0-67.9) % Lymph % (Auto) 8.4 L (21.8-53.1) % Castro % (Auto) 9.0 (5.3-12.2) % Eos % (Auto) 1.5 (0.8-7.0) Baso % (Auto) 0.2 (0.1-1.2) % Neut # (Auto) 8.10 H (1.78-5.38) K/mm3 Lymph # (Auto) 0.84 L (1.32-3.57) K/mm3 Castro # (Auto) 0.90 H (0.30-0.82) K/mm3 Eos # (Auto) 0.15 (0.04-0.54) K/mm3 Baso # (Auto) 0.02 (0.01-0.08) K/mm3 Manual Slide Review Abnormal smear D-Dimer, Quantitative 0.27 (0.19-0.50) mg/L Sodium 134 L (136-145) mEq/L Potassium 4.5 (3.5-5.1) mEq/L Chloride 99 (98-107) mEq/L Carbon Dioxide 25 (21-32) mEq/L Anion Gap 14.5 (5-15) BUN 25 H (7-18) mg/dL Creatinine 1.5 H (0.7-1.3) mg/dL Est Cr Clr Drug Dosing 59.57 mL/min Estimated GFR (MDRD) 50 (>60) mL/min BUN/Creatinine Ratio 16.7 (14-18) Glucose 80 (74-106) mg/dL Calcium 9.1 (8.5-10.1) mg/dL Total Bilirubin 0.2 (0.2-1.0) mg/dL AST 11 L (15-37) U/L ALT 30 (16-63) U/L Alkaline Phosphatase 156 H (46-116) U/L Troponin I < 0.017 (0.00-0.056) ng/mL Total Protein 7.4 (6.4-8.2) g/dl Albumin 4.2 (3.4-5.0) g/dl Globulin 3.2 gm/dL Albumin/Globulin Ratio 1.3 (1-2) Ethyl Alcohol (0.00) gm% 10/05/19 Range/Units 16:10 WBC (4.23-9.07) K/mm3 RBC (4.63-6.08) M/mm3 Hgb (13.7-17.5) gm/dl Hct (40.1-51.0) % MCV (79.0-92.2) fl MCH (25.7-32.2) pg MCHC (32.2-35.5) g/dl RDW Std Deviation (35.1-43.9) fL Plt Count (163-337) K/mm3 MPV (9.4-12.3) fl Neut % (Auto) (34.0-67.9) % Lymph % (Auto) (21.8-53.1) % Castro % (Auto) (5.3-12.2) % Eos % (Auto) (0.8-7.0) Baso % (Auto) (0.1-1.2) % Neut # (Auto) (1.78-5.38) K/mm3 Lymph # (Auto) (1.32-3.57) K/mm3 Castro # (Auto) (0.30-0.82) K/mm3 Eos # (Auto) (0.04-0.54) K/mm3 Baso # (Auto) (0.01-0.08) K/mm3 Manual Slide Review D-Dimer, Quantitative (0.19-0.50) mg/L Sodium (136-145) mEq/L Potassium (3.5-5.1) mEq/L Chloride (98-107) mEq/L Carbon Dioxide (21-32) mEq/L Anion Gap (5-15) BUN (7-18) mg/dL Creatinine (0.7-1.3) mg/dL Est Cr Clr Drug Dosing mL/min Estimated GFR (MDRD) (>60) mL/min BUN/Creatinine Ratio (14-18) Glucose (74-106) mg/dL Calcium (8.5-10.1) mg/dL Total Bilirubin (0.2-1.0) mg/dL AST (15-37) U/L ALT (16-63) U/L Alkaline Phosphatase (46-116) U/L Troponin I (0.00-0.056) ng/mL Total Protein (6.4-8.2) g/dl Albumin (3.4-5.0) g/dl Globulin gm/dL Albumin/Globulin Ratio (1-2) Ethyl Alcohol 0.00 (0.00) gm% Meds: Medications Generic Name Dose Route Start Last Admin Trade Name Freq PRN Reason Stop Dose Admin Ketorolac Tromethamine 30 mg 10/05/19 16:45 10/05/19 16:41 Toradol IVPUSH 30 mg ONETIME JEAN CARLOS Administration Sodium Chloride 10 ml 10/05/19 16:35 10/05/19 16:38 Saline Flush FLUSH 10 ml ASDIRECTED PRN Administration Keep Vein Open Discontinued Medications Generic Name Dose Route Start Last Admin Trade Name Freq PRN Reason Stop Dose Admin Acetaminophen 975 mg 10/05/19 16:35 10/05/19 16:42 Tylenol PO 10/05/19 16:36 975 mg NOW ONE Administration Aspirin 324 mg 10/05/19 16:19 10/05/19 16:36 Aspirin PO 10/05/19 16:20 324 mg ONETIME ONE Administration - Re-Assessments/Exams Free Text/Narrative Re-Assessment/Exam: 10/05/19 17:34 CXR nl, trop has come back nl, still waiting for D Dimer. 10/05/19 18:05. D Dimer also did come back nl. Pain is gone. Had given torodol IV and PO tylenol about 1 hr ago. Abd completely soft and nontender at time of reexam. No current chest pain, no back pain or tenderness. Sinus rythm, no ectopy. Discharge instr. as documented with strong return precautions discussed with patient at time of discharge. Departure - Departure Time of Disposition: 17:50 Disposition: Home, Self-Care 01 Condition: Fair Clinical Impression: Atypical chest pain Abdominal pain Qualifiers: Abdominal location: upper abdomen, unspecified Qualified Code(s): R10.10 - Upper abdominal pain, unspecified Back pain Qualifiers: Back pain location: low back pain Chronicity: acute Back pain laterality: unspecified Sciatica presence: without sciatica Qualified Code(s): M54.5 - Low back pain Instructions: Nonspecific Chest Pain, Adult Forms: ED Department Discharge Additional Instructions: rest, increase activity slowly as tolerated. Drink plenty of water to maintain hydration. You may continue tylenol up to 3 times daily if needed for further discomfort. Advil or ibuprofen in between doses of tylenol if needed. Return to ED as needed as discussed if symptoms worsening in any way. Sepsis Event Note (ED) - Evaluation Sepsis Screening Result: No Definite Risk - Focused Exam Vital Signs: Vital Signs Temp Pulse Resp BP Pulse Ox 10/05/19 16:05 97.7 F 86 18 123/70 100 - My Orders Last 24 Hours: My Active Orders 10/05/19 16:18 EKG Documentation Completion [RC] STAT 10/05/19 16:35 Peripheral IV Care [RC] . DIRECTED Sodium Chloride 0.9% [Saline Flush] 10 ml FLUSH ASDIRECTED PRN Peripheral IV Insertion Adult [OM.PC] Stat 10/05/19 16:45 Ketorolac [Toradol] 30 mg IVPUSH ONETIME 10/05/19 16:54 Chest 1V Frontal [CR] Stat - Assessment/Plan Last 24 Hours: My Active Orders 10/05/19 16:18 EKG Documentation Completion [RC] STAT 10/05/19 16:35 Peripheral IV Care [RC] . DIRECTED Sodium Chloride 0.9% [Saline Flush] 10 ml FLUSH ASDIRECTED PRN Peripheral IV Insertion Adult [OM.PC] Stat 10/05/19 16:45 Ketorolac [Toradol] 30 mg IVPUSH ONETIME 10/05/19 16:54 Chest 1V Frontal [CR] Stat
--- NOTE | 2019-10-06 12:16 | CR ---
Chest: Portable view of the chest was obtained. Comparison: No prior chest imaging is available. Heart size and mediastinum are normal. Lungs are clear with no acute parenchymal change. Scoliosis is noted within the spine. Impression: 1. Nothing acute is appreciated on portable chest x-ray. Diagnostic code #2 This report was dictated in MDT
== END 2019-10-05 18:05 | disposition home or self-care (01) ==
LOC: JD.ED 16:00
DX: R10.10 Upper abdominal pain, unspecified (principal); M54.5 Low back pain; R07.89 Other chest pain; E78.00 Pure hypercholesterolemia, unspecified; R56.9 Unspecified convulsions; I10 Essential (primary) hypertension; Z79.82 Long term (current) use of aspirin; Z79.899 Other long term (current) drug therapy; F17.210 Nicotine dependence, cigarettes, uncomplicated
CPT/HCPCS: 36415; 71045; 80053; 80307; 84484; 85025; 85379; 93005; 99285; A9270; J1885; 93010; 99284

== ENCOUNTER 2019-10-06 08:24 | Emergency (ER) | payer OTHER ==
--- NOTE | 2019-10-06 09:00 | EDM.PDOC ---
ED HPI GENERAL MEDICAL PROBLEM - General Chief Complaint: Back Pain or Injury Stated Complaint: BACK PAIN Time Seen by Provider: 10/06/19 08:48 Source of Information: Reports: Patient History Limitations: Reports: No Limitations - History of Present Illness INITIAL COMMENTS - FREE TEXT/NARRATIVE: The patient presents with low back pain that radiates up his back and to his left abdomen. He was here yesterday for the same and he had a complete cardiac work up. Nothing bad was found. He was given a shot of toradol and the pain went away. About an hour after he left the pain was back and not it is worse. He has no fever, chills, cough, congestion, runny nose, chest pain, shortness of breath, numbness or weakness. He has a history of epilepsy, hypertension and hypercholesterolemia. Onset: Gradual Duration: Day(s): Location: Reports: Back Quality: Reports: Sharp Severity: Severe Improves with: Reports: Immobilization Worsens with: Reports: Movement Context: Denies: Trauma Associated Symptoms: Reports: No Other Symptoms Middle Back Pain Score (Numeric/FACES): 10 - Related Data Allergies Allergy/AdvReac Type Severity Reaction Status Date / Time No Known Allergies Allergy Verified 10/06/19 08:33 Home Meds: Home Meds Aspirin [Halfprin] 81 mg PO DAILY 05/15/17 [History] Lisinopril 40 mg PO DAILY 05/15/17 [History] Phenytoin Sodium Extended [Dilantin] 200 mg PO BID 05/15/17 [History] atorvaSTATin [Lipitor] 20 mg PO DAILY 05/15/17 [History] levETIRAcetam [Keppra] 1,500 mg PO BID 05/15/17 [History] Phenytoin 50 mg PO BEDTIME 10/23/17 [History] Past Medical History HEENT History: Reports: None Cardiovascular History: Reports: High Cholesterol, Hypertension Respiratory History: Reports: None Gastrointestinal History: Reports: None Genitourinary History: Reports: None [employer] History: Reports: None Other Musculoskeletal History: olecranon fracture Neurological History: Reports: Seizure Psychiatric History: Reports: None Endocrine/Metabolic History: Reports: None Hematologic History: Reports: None Immunologic History: Reports: None Oncologic (Cancer) History: Reports: None Dermatologic History: Reports: None - Past Surgical History Head Surgeries/Procedures: Reports: None HEENT Surgical History: Reports: None Cardiovascular Surgical History: Reports: None Respiratory Surgical History: Reports: Other (See Below) GI Surgical History: Reports: None Male Surgical History: Reports: None Endocrine Surgical History: Reports: None Neurological Surgical History: Reports: None Musculoskeletal Surgical History: Reports: Shoulder Surgery, Other (See Below) Other Musculoskeletal Surgeries/Procedures:: left elbow ORIF with hardware placed Oncologic Surgical History: Reports: None Dermatological Surgical History: Reports: None Social & Family History - Tobacco Use Smoking Status *Q: Current Every Day Smoker Years of Tobacco use: 20 Packs/Tins Daily: 1 - Caffeine Use Caffeine Use: Reports: Coffee - Recreational Drug Use Recreational Drug Use: No - Living Situation & Occupation Living situation: Reports: Single, Alone 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 GENERAL - Review of Systems Review Of Systems: See Below Constitutional: Reports: No Symptoms HEENT: Reports: No Symptoms Respiratory: Reports: No Symptoms Cardiovascular: Reports: No Symptoms Endocrine: Reports: No Symptoms GI/Abdominal: Reports: No Symptoms : Reports: No Symptoms Musculoskeletal: Reports: Back Pain Skin: Reports: No Symptoms ED EXAM,LOWER BACK PAIN/INJURY - Physical Exam Exam: See Below Exam Limited By: No Limitations General Appearance: Alert, No Apparent Distress Ears: Normal External Exam Nose: Normal Inspection Head: Atraumatic, Normocephalic Neck: Normal Inspection Respiratory/Chest: No Respiratory Distress, Lungs Clear, Normal Breath Sounds Cardiovascular: Regular Rate, Rhythm, No Edema, No Murmur GI/Abdominal: Soft, Non-Tender, No Organomegaly, No Mass Back Exam: Other (Pain upon palpation to the left lower and upper back.) Neurological: Alert, No Motor/Sensory Deficits, Oriented x 3 Course - Vital Signs Last Recorded V/S: Last Vital Signs Temp 97.8 F 10/06/19 08:34 Pulse 81 10/06/19 08:34 Resp 13 10/06/19 08:34 BP 122/80 10/06/19 08:34 Pulse Ox 100 10/06/19 08:34 - Re-Assessments/Exams Free Text/Narrative Re-Assessment/Exam: 10/06/19 08:58 I offered to recheck somethings but he did not want that done. I will get him on a muscle and some hydrocodone. Departure - Departure Time of Disposition: 09:00 Disposition: Home, Self-Care 01 Condition: Good Clinical Impression: Back pain Qualifiers: Back pain location: low back pain Chronicity: acute Back pain laterality: left Sciatica presence: without sciatica Qualified Code(s): M54.5 - Low back pain - Discharge Information *PRESCRIPTION DRUG MONITORING PROGRAM REVIEWED*: Not Applicable *COPY OF PRESCRIPTION DRUG MONITORING REPORT IN PATIENT MANJULA: Not Applicable Referrals: Tosin Fishman MD [Primary Care Provider] - Additional Instructions: Take motrin or tylenol for pain and use the flexeril. If that does not help try the hydrocodone. Please return if you are worse. Sepsis Event Note (ED) - Evaluation Sepsis Screening Result: No Definite Risk - Focused Exam Vital Signs: Vital Signs Temp Pulse Resp BP Pulse Ox 10/06/19 08:34 97.8 F 81 13 122/80 100
== END 2019-10-06 09:12 | disposition home or self-care (01) ==
LOC: JD.ED 08:24
DX: M54.5 Low back pain (principal); I10 Essential (primary) hypertension; E78.00 Pure hypercholesterolemia, unspecified; F17.210 Nicotine dependence, cigarettes, uncomplicated; Z79.82 Long term (current) use of aspirin; Z79.899 Other long term (current) drug therapy; Z98.890 Other specified postprocedural states
CPT/HCPCS: 99283

== ENCOUNTER 2019-10-08 19:06 | Observation (INO) | payer OTHER ==
--- NOTE | 2019-10-08 19:29 | EDM.PDOC ---
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 be admitted to this facility. 10/09/19 00:15 The test for the SARS-CoV-2 virus has returned negative. 10/09/19 00:[address] Zimmer at 00:16. She accepted the patient for placement into observation with a diagnosis of volume depletion. She requested that I order a random urine sodium and random urine creatinine. We will continue LR at 250 mL/h. I will order a BMP for the morning. Departure - Departure Time of Disposition: 00:30 Disposition: Refer to Observation Condition: Fair Clinical Impression: Hyponatremia, Acute on chronic renal failure, Thrombocytopenia, Seizure, Intravascular volume depletion - Discharge Information *PRESCRIPTION DRUG MONITORING PROGRAM REVIEWED*: Not Applicable *COPY OF PRESCRIPTION DRUG MONITORING REPORT IN PATIENT MANJULA: Not Applicable Sepsis Event Note (ED) - Evaluation Sepsis Screening Result: No Definite Risk - Focused Exam Vital Signs: Vital Signs Temp Pulse Resp BP Pulse Ox 10/08/19 23:17 37.3 C 123 H 16 136/64 97 10/08/19 19:08 38.6 C H 124 H 18 101/55 L 91 L - My Orders Last 24 Hours: My Active Orders 10/08/19 19:31 EKG Documentation Completion [RC] STAT Chest 1V Frontal [CR] Stat 10/08/19 19:32 Blood Culture x2 Reflex Set [OM.PC] Stat 10/08/19 19:50 CULTURE BLOOD [BC] Stat 10/08/19 19:55 CULTURE BLOOD [BC] Stat 10/08/19 20:52 Ang Chest [CT] Stat 10/08/19 21:17 Sodium Chloride 0.9% [Saline Flush] 10 ml FLUSH ONETIME PRN 10/08/19 21:30 Sodium Chloride 0.9% [Normal Saline] 45 ml IV ASDIRECTED 10/09/19 00:30 Lactated Ringers [Ringers, Lactated] 1,000 ml IV ASDIRECTED - Assessment/Plan Last 24 Hours: My Active Orders 10/08/19 19:31 EKG Documentation Completion [RC] STAT Chest 1V Frontal [CR] Stat 10/08/19 19:32 Blood Culture x2 Reflex Set [OM.PC] Stat 10/08/19 19:50 CULTURE BLOOD [BC] Stat 10/08/19 19:55 CULTURE BLOOD [BC] Stat 10/08/19 20:52 Ang Chest [CT] Stat 10/08/19 21:17 Sodium Chloride 0.9% [Saline Flush] 10 ml FLUSH ONETIME PRN 10/08/19 21:30 Sodium Chloride 0.9% [Normal Saline] 45 ml IV ASDIRECTED 10/09/19 00:30 Lactated Ringers [Ringers, Lactated] 1,000 ml IV ASDIRECTED
[2019-10-08] MEDS ORDERED: levETIRAcetam 2,000 MG in Sodium Chloride 0.9% 100 ML IV STA (19:33)
[2019-10-08] MEDS ORDERED: Lactated Ringers 1,000 ML IV SCH (19:45)
--- NOTE | 2019-10-08 20:07 | CT ---
Head CT Technique: Multiple axial sections through the brain were obtained. Intravenous contrast was not utilized. Comparison: Prior head CT study of 01/02/10 MRI brain of 01/20/10. Findings: Ventricles along the basal cisterns and sulci over the convexities are within normal limits for the patient's age. No abnormal parenchymal densities are seen. No evidence of intracranial hemorrhage. No midline shift or mass-effect is seen. Bone window settings were reviewed. No acute calvarial finding is appreciated. Visualized mastoid sinuses and visualized paranasal sinuses show nothing acute. Impression: 1. Nothing acute is identified on noncontrast head CT study. Diagnostic code #1 This report was dictated in MDT
[2019-10-08] MEDS ORDERED: Phenytoin 250 MG/5 ML SDV ONE (20:36)
[2019-10-08] MEDS ORDERED: Sodium Chloride 0.9% 50 ML ONE (20:37)
[2019-10-08] MEDS ORDERED: Lactated Ringers 1,000 ML IV ONE (20:47)
[2019-10-08] MEDS ORDERED: Sodium Chloride 0.9% 10 ML Syringe FLUSH PRN (21:17)
[2019-10-08] MEDS ORDERED: Iopamidol 755 Mg/ML 100 ML Bottle IVPUSH ONE (21:17)
[2019-10-08] MEDS ORDERED: Sodium Chloride 0.9% 45 ML IV SCH (21:30)
[2019-10-09] MEDS ORDERED: Lactated Ringers 1,000 ML IV SCH (00:30)
[2019-10-09] MEDS ORDERED: Sodium Chloride 0.9% 1,000 ML ONE (04:48)
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
--- NOTE | 2019-10-09 14:03 | CR ---
Chest: Portable view of the chest was obtained. Comparison: Prior chest x-ray of 10/05/19. Heart size and mediastinum are within normal limits for portable technique. Lungs are clear with no acute parenchymal change. Minimal scoliosis noted. Degenerative change is seen within the left shoulder. Impression: 1. Nothing acute is seen on portable chest x-ray. Diagnostic code #2 This report was dictated in MDT
--- NOTE | 2019-10-09 14:03 | CT ---
CT cervical spine Technique: Multiple axial sections were obtained from above C1 inferiorly to the top of T4. Reconstructed sagittal and coronal images were reviewed. Comparison: No prior cervical spine imaging is available. Findings: Mild disc space narrowing is noted at C3-4. Severe disc space narrowing is noted at C4-5, C5-6 and C6-7. Mild disc space narrowing at C7-T1 is seen. Posterior osteophytes are seen at C3-4 through C6-7. Anterior osteophytes are seen at C3-4 through C6-7. Degenerative change is noted between the dens and anterior arch of C1. Mild to moderate bilateral neural foraminal stenosis is noted at C4-5. Moderate right-sided neural foraminal stenosis is noted at C5-6. Moderate left-sided neural foraminal stenosis is also noted at C5-6. Epidural air is noted to the left side at C5-6 compatible with annular rupture. Mild right-sided neural foraminal stenosis is noted at C6-7. Other neural foramina are patent. Mild scattered degenerative apophyseal change is seen. Vascular calcifications are seen within the carotid arteries. No acute fracture or dislocation is seen. Impression: 1. Diffuse degenerative change. 2. No acute fracture or acute subluxation is seen. Diagnostic code #2 This report was dictated in MDT I agree with preliminary report from [facility], finalized on 10/08/19, 10:12 PM Central Daylight Time
--- NOTE | 2019-10-09 14:15 | CT ---
CT chest Technique: Multiple axial sections through the chest were obtained. Intravenous contrast was utilized. Study performed as a pulmonary angiogram protocol. Findings: Pulmonary arteries are not optimally opacified. No filling defects within the main or segmental branches are seen. Smaller subsegmental pulmonary emboli could be missed. Aorta shows no aneurysm. Atherosclerotic calcification is noted within the thoracic aorta. Mediastinum and hilar regions show no adenopathy. No pericardial thickening is seen. Visualized upper abdominal structures show no discrete abnormality. Slight dependent atelectasis is seen posteriorly within both lungs. No acute parenchymal change is seen. No pneumothorax or pleural effusions are seen. Old healed rib deformities are seen within the left 3rd and 4th ribs. No acute rib abnormality is appreciated. Impression: 1. Suboptimal opacification of the pulmonary arteries. No findings of pulmonary embolism within the main or segmental branches. Smaller subsegmental pulmonary emboli could be missed. 2. Other nonacute findings as noted above. Diagnostic code #2 This report was dictated in MDT I agree with preliminary report from [facility], finalized on 10/08/19, 11:13 PM Central Daylight Time
--- NOTE | 2019-10-09 14:41 | CT ---
Head CT Technique: Multiple axial sections through the brain were obtained. Intravenous contrast was not utilized. Comparison: Prior head CT study of 10/08/19. Findings: Ventricles along with basal cisterns and sulci over the convexities are within normal limits for the patient's age. No abnormal parenchymal densities are seen. No evidence of intracranial hemorrhage. No midline shift or mass-effect is seen. Bone window settings were reviewed. Minimal mucosal thickening is seen within the ethmoid and left frontal sinus. No acute paranasal sinus findings seen within the visualized sinuses. Mastoid sinuses that are seen appear clear. No acute calvarial finding is seen. Impression: 1. Minimal sinus findings believed to be incidental. 2. No acute intracranial abnormality is appreciated. Note: Considering the two negative head CT studies within 24 hours, recommend MRI to further evaluate the patient's symptoms. Diagnostic code #2 This report was dictated in MDT I agree with preliminary report from [facility], finalized on 10/09/19, 5:19 AM Central Daylight Time
== END 2019-10-09 04:56 ==
LOC: JD.ED 19:06 → JD.MS 10-09 00:31
PROVIDERS: ADMIT Internal Medicine; ATTEND Internal Medicine
DX: E86.9 Volume depletion, unspecified (principal); N17.9 Acute kidney failure, unspecified; F17.200 Nicotine dependence, unspecified, uncomplicated; E78.5 Hyperlipidemia, unspecified; R79.89 Other specified abnormal findings of blood chemistry; R00.0 Tachycardia, unspecified; R82.90 Unspecified abnormal findings in urine; R41.82 Altered mental status, unspecified; Z71.1 Person with feared health complaint in whom no diagnosis is made; E87.8 Other disorders of electrolyte and fluid balance, not elsewhere classified; E87.6 Hypokalemia; E87.1 Hypo-osmolality and hyponatremia; E83.39 Other disorders of phosphorus metabolism; N18.9 Chronic kidney disease, unspecified; D63.1 Anemia in chronic kidney disease; I12.9 Hypertensive chronic kidney disease with stage 1 through stage 4 chronic kidney disease, or unspecified chronic kidney disease; G40.909 Epilepsy, unspecified, not intractable, without status epilepticus; D69.6 Thrombocytopenia, unspecified; Z79.82 Long term (current) use of aspirin; Z79.899 Other long term (current) drug therapy; Z20.828 Contact with and (suspected) exposure to other viral communicable diseases
CPT/HCPCS: 36415; 36600; 70450; 71045; 71275; 72125; 80048; 80053; 80306; 80307; 81001; 82570; 82803; 82962; 83605; 83735; 84100; 84300; 85007; 85027; 85379; 85610; 85730; 87040; 87077; 87186; 87635; 93005; 96361; 96365; 96367; 99285; G0378; J1165; J1953; J7030; J7050; J7120; Q9967; 93010; U0002

== ENCOUNTER 2022-04-01 13:03 | Inpatient (IN) | payer MEDICAID, OTHER, SELFPAY ==
[2022-04-01] MEDS ORDERED: Sodium Chloride 0.9% 1,000 ML IV ONE ×2 (13:06→18:38)
[2022-04-01] MEDS ORDERED: Sodium Chloride 0.9% 10 ML Syringe FLUSH PRN (13:06)
[2022-04-01] MEDS ORDERED: Acetaminophen 325 MG Tab PO ONE (13:27)
[2022-04-01 14:13] LABS: CORONAVIRUS COVID-19 NAA NEGATIVE (NEGATIVE)
[2022-04-01] MEDS ORDERED: levETIRAcetam 500 MG Tab PO ONE (16:10)
[2022-04-01] MEDS ORDERED: Phenytoin 100 MG Cap.ER PO ONE (16:11)
[2022-04-01] MEDS ORDERED: Iopamidol 612 MG/ML 100 ML Bottle IVPUSH ONE ×2 (17:29→18:30)
[2022-04-01] MEDS ORDERED: Sodium Chloride 0.9% 10 ML Syringe FLUSH ONE ×2 (17:29→17:45)
[2022-04-01] MEDS ORDERED: Sodium Chloride 0.9% 500 ML IV STA (17:32)
[2022-04-01] MEDS ORDERED: cefTRIAXone 2 GM in Sodium Chloride 0.9% 100 ML IV ONE (19:13)
[2022-04-02] MEDS: Sodium Chloride 0.9% 1,000 ML IV SCH ×3 (01:43→18:40)
[2022-04-02] MEDS: Acetaminophen 325 MG Tab PO PRN ×2 (02:24→18:39)
[2022-04-02] MEDS: Potassium Chloride 10 MEQ in Premix Bag 1 BAG IV SCH ×4 (09:05→13:00)
[2022-04-02] MEDS: Metoprolol Tartrate 100 MG Tab PO SCH ×2 (09:06→20:04)
[2022-04-02] MEDS: Aspirin 81 MG Tab.EC PO SCH (09:06)
[2022-04-02] MEDS: Phenytoin 100 MG Cap.ER PO SCH ×2 (09:06→20:02)
[2022-04-02] MEDS: Cholecalciferol (Vitamin D3) 25 MCG Tab PO SCH (09:06)
[2022-04-02] MEDS: atorvaSTATin 20 MG Tab PO SCH (09:06)
[2022-04-02 10:47] LABS: BORDETELLA PARAPERT IS1001 Not Detected (Not Detected)
[2022-04-02] MEDS: LEVETIRACETAM 500 MG PO SCH ×2 (10:48→20:04)
[2022-04-02] MEDS: Warfarin 5 MG Tab PO SCH (18:39)
[2022-04-02] MEDS ORDERED: cefTRIAXone 2 GM in Sodium Chloride 0.9% 100 ML IV SCH (20:00)
[2022-04-03] MEDS: Sodium Chloride 0.9% 1,000 ML IV SCH ×3 (03:33→22:59)
[2022-04-03] MEDS ORDERED: VANCOmycin 1.75 GM/350 ML 350 ML IV ONE (08:00)
[2022-04-03] MEDS: Cholecalciferol (Vitamin D3) 25 MCG Tab PO SCH (08:23)
[2022-04-03] MEDS: atorvaSTATin 20 MG Tab PO SCH (08:24)
[2022-04-03] MEDS: Aspirin 81 MG Tab.EC PO SCH (08:24)
[2022-04-03] MEDS: Metoprolol Tartrate 100 MG Tab PO SCH ×2 (08:25→21:17)
[2022-04-03] MEDS: Phenytoin 100 MG Cap.ER PO SCH ×2 (08:26→21:17)
[2022-04-03] MEDS: LEVETIRACETAM 500 MG PO SCH ×2 (09:00→21:19)
[2022-04-03] MEDS: Acetaminophen 325 MG Tab PO PRN (15:16)
[2022-04-03] MEDS: Warfarin 5 MG Tab PO SCH (18:13)
[2022-04-04] MEDS ORDERED: Gadobenate Dimeglumine 529 MG/ML 20 ML SDV IVPUSH ONE (07:13)
[2022-04-04] MEDS ORDERED: Sodium Chloride 0.9% 10 ML Syringe FLUSH SCH (07:15)
[2022-04-04] MEDS: Phenytoin 100 MG Cap.ER PO SCH ×2 (08:50→20:04)
[2022-04-04] MEDS: Metoprolol Tartrate 100 MG Tab PO SCH ×2 (08:50→20:04)
[2022-04-04] MEDS: Aspirin 81 MG Tab.EC PO SCH (08:50)
[2022-04-04] MEDS: atorvaSTATin 20 MG Tab PO SCH (08:50)
[2022-04-04] MEDS: Cholecalciferol (Vitamin D3) 25 MCG Tab PO SCH (08:51)
[2022-04-04] MEDS: Sodium Chloride 0.9% 1,000 ML IV SCH ×2 (08:53→20:03)
[2022-04-04] MEDS: LEVETIRACETAM 500 MG PO SCH ×2 (08:53→20:08)
[2022-04-04] MEDS: Warfarin 5 MG Tab PO SCH (17:46)
[2022-04-05] MEDS: Cholecalciferol (Vitamin D3) 25 MCG Tab PO SCH (08:09)
[2022-04-05] MEDS: Aspirin 81 MG Tab.EC PO SCH (08:10)
[2022-04-05] MEDS: Metoprolol Tartrate 100 MG Tab PO SCH ×2 (08:11→20:01)
[2022-04-05] MEDS: Phenytoin 100 MG Cap.ER PO SCH ×2 (08:11→20:01)
[2022-04-05] MEDS: LEVETIRACETAM 500 MG PO SCH ×2 (08:12→20:03)
[2022-04-05] MEDS: atorvaSTATin 20 MG Tab PO SCH (08:12)
[2022-04-05] MEDS: Sodium Chloride 0.9% 1,000 ML IV SCH (08:13)
[2022-04-05] MEDS ORDERED: Warfarin 7.5 MG Tab PO SCH (18:00)
[2022-04-05] MEDS ORDERED: VANCOmycin 1.5 GM/300 ML 1.5 GM in Premix Bag 1 BAG IV SCH (20:00)
== END 2022-04-05 21:45 | disposition home or self-care (01) | DRG 71 ==
LOC: JD.ED 13:03 → JD.MS 19:36
PROVIDERS: ADMIT Nurse Practitioner Family; ATTEND Internal Medicine
PROC: 009U3ZZ Drainage of Spinal Canal, Percutaneous Approach (ICD-10-PCS; principal; 2022-04-01)
DX: G93.40 Encephalopathy, unspecified (principal); R78.81 Bacteremia; R50.9 Fever, unspecified; B95.61 Methicillin susceptible Staphylococcus aureus infection as the cause of diseases classified elsewhere; E87.6 Hypokalemia; G40.909 Epilepsy, unspecified, not intractable, without status epilepticus; E78.5 Hyperlipidemia, unspecified; Z20.822 Contact with and (suspected) exposure to COVID-19; I10 Essential (primary) hypertension; Z96.698 Presence of other orthopedic joint implants; Z90.89 Acquired absence of other organs; Z98.890 Other specified postprocedural states; Z97.3 Presence of spectacles and contact lenses; Z86.73 Personal history of transient ischemic attack (TIA), and cerebral infarction without residual deficits; Z79.01 Long term (current) use of anticoagulants; Z95.2 Presence of prosthetic heart valve; Z79.82 Long term (current) use of aspirin; Z79.1 Long term (current) use of non-steroidal anti-inflammatories (NSAID); Z79.899 Other long term (current) drug therapy
CPT/HCPCS: 0241U; 36415; 70460; 70460-26; 70553; 70553-26; 71046; 71046-26; 80048; 80053; 80202; 81001; 82140; 82945; 83605; 83735; 84157; 84484; 85007; 85025; 85027; 85379; 85610; 86140; 87040; 87070; 87075; 87077; 87154; 87186; 87205; 87483; 87486; 87581; 87633; 87798; 89050; 93005; 93307; 94761; A9270-GY; A9577; J0696; J3370; J3480; J3490; J7030; J7050; Q9967

== ENCOUNTER 2022-06-02 12:34 | Inpatient (IN) | payer BC, MEDICAID ==
[2022-06-02] MEDS ORDERED: Sodium Chloride 0.9% 10 ML Syringe FLUSH PRN (13:07)
[2022-06-02] MEDS ORDERED: Ondansetron 4 MG/2 ML SDV IV PRN (13:08)
[2022-06-02] MEDS ORDERED: Docusate Sodium 100 MG Cap PO PRN (13:08)
[2022-06-02] MEDS ORDERED: Acetaminophen 325 MG Tab PO PRN ×2 (13:08→14:24)
[2022-06-02] MEDS ORDERED: ceFAZolin 2 GM Vial IV SCH (14:30)
[2022-06-02] MEDS ORDERED: Potassium Chloride 20 MEQ Tab.ER PO STA (14:47)
[2022-06-02] MEDS ORDERED: Sodium Chloride 0.9% 250 ML IV SCH (15:00)
[2022-06-02] MEDS ORDERED: Potassium Chloride 10 MEQ in Premix Bag 1 BAG IV SCH (15:30)
[2022-06-02] MEDS: ceFAZolin 2 GM in Sodium Chloride 0.9% 50 ML IV SCH (16:42)
[2022-06-02] MEDS: Rifampin 300 MG Cap PO SCH (20:32)
[2022-06-02] MEDS: Phenytoin 100 MG Cap.ER PO SCH (20:32)
[2022-06-02] MEDS: atorvaSTATin 40 MG Tab PO SCH (20:34)
[2022-06-02] MEDS: levETIRAcetam 500 MG Tab PO SCH (20:34)
[2022-06-02] MEDS: Metoprolol Tartrate 25 MG Tab PO SCH (20:35)
[2022-06-02] MEDS: Sodium Chloride 0.9% 10 ML Syringe FLUSH SCH (20:37)
[2022-06-02] MEDS ORDERED: Potassium Chloride 20 MEQ Tab.ER PO ONE (21:00)
[2022-06-02] MEDS: Potassium Chloride 10 MEQ in Premix Bag 1 BAG IV SCH (23:45)
[2022-06-03] MEDS: Potassium Chloride 10 MEQ in Premix Bag 1 BAG IV SCH ×3 (00:45→03:33)
[2022-06-03] MEDS: ceFAZolin 2 GM in Sodium Chloride 0.9% 50 ML IV SCH ×3 (01:43→16:20)
[2022-06-03] MEDS: Metoprolol Tartrate 25 MG Tab PO SCH ×2 (08:27→20:17)
[2022-06-03] MEDS: levETIRAcetam 500 MG Tab PO SCH ×2 (08:28→20:16)
[2022-06-03] MEDS: Phenytoin 100 MG Cap.ER PO SCH ×2 (08:28→20:15)
[2022-06-03] MEDS: Sodium Chloride 0.9% 10 ML Syringe FLUSH SCH (08:43)
[2022-06-03] MEDS: Rifampin 300 MG Cap PO SCH ×2 (08:49→20:19)
[2022-06-03] MEDS ORDERED: Pantoprazole 40 MG Tab.CR PO ONE (12:07)
[2022-06-03] MEDS: Pantoprazole 40 MG Tab.CR PO SCH (16:20)
[2022-06-03] MEDS: atorvaSTATin 40 MG Tab PO SCH (20:18)
[2022-06-04] MEDS: ceFAZolin 2 GM in Sodium Chloride 0.9% 50 ML IV SCH ×2 (00:12→08:44)
[2022-06-04] MEDS: Sodium Chloride 0.9% 10 ML Syringe FLUSH SCH (00:14)
[2022-06-04] MEDS: Pantoprazole 40 MG Tab.CR PO SCH (05:26)
[2022-06-04] MEDS: Metoprolol Tartrate 25 MG Tab PO SCH (08:39)
[2022-06-04] MEDS: Phenytoin 100 MG Cap.ER PO SCH (08:39)
[2022-06-04] MEDS: levETIRAcetam 500 MG Tab PO SCH (08:40)
[2022-06-04] MEDS ORDERED: Warfarin 3 MG Tab PO ONE (18:00)
== END 2022-06-04 11:40 | disposition left against medical advice (07) | DRG 425 ==
LOC: JD.MS 12:42
PROVIDERS: ADMIT Hospitalist; ATTEND Hospitalist
PROC: 30233N1 Transfusion of Nonautologous Red Blood Cells into Peripheral Vein, Percutaneous Approach (ICD-10-PCS; principal; 2022-06-02)
DX: E87.6 Hypokalemia (principal); D64.9 Anemia, unspecified; G40.909 Epilepsy, unspecified, not intractable, without status epilepticus; D68.62 Lupus anticoagulant syndrome; E78.5 Hyperlipidemia, unspecified; K21.9 Gastro-esophageal reflux disease without esophagitis; E78.00 Pure hypercholesterolemia, unspecified; R19.5 Other fecal abnormalities; N18.2 Chronic kidney disease, stage 2 (mild); N17.9 Acute kidney failure, unspecified; Z79.82 Long term (current) use of aspirin; Z79.899 Other long term (current) drug therapy; Z86.73 Personal history of transient ischemic attack (TIA), and cerebral infarction without residual deficits; Z95.4 Presence of other heart-valve replacement; Z98.890 Other specified postprocedural states; Z79.01 Long term (current) use of anticoagulants; Z79.2 Long term (current) use of antibiotics
CPT/HCPCS: 36415; 36430; 80048; 80053; 82272; 83615; 83735; 84484; 85014; 85018; 85025; 85045; 85610; 85730; 86850; 86900; 86901; 86922; 93005; 93307; A9270-GY; J0690; J3480; J3490; J7050; P9016